=== PATIENT | male | born 1990 | race Caucasian/White ===

== ENCOUNTER 2019-06-16 10:02 | Emergency (ER) | payer BC, OTHER ==
[2019-06-16 10:11] VITALS: RESP 18; TEMP 98
[2019-06-16 11:22] VITALS: BP 132/82; PULSE 70
== END 2019-06-16 11:19 | disposition home or self-care (01) ==
LOC: EC 10:02
DX: Z02.9 Encounter for administrative examinations, unspecified (principal)

== ENCOUNTER 2020-06-06 20:08 | Emergency (ER) | payer BC ==
[2020-06-06 20:32] VITALS: BP 108/69; PULSE 98; RESP 18; TEMP 98.1
--- NOTE | 2020-06-06 20:55 | ED ---
General Adult HPI - General Chief complaint: Recheck/Abnormal Lab/Rx Stated complaint: chills and sore throat Time Seen by Provider: 06/06/20 20:32 Source: patient Mode of arrival: ambulatory Limitations: no limitations - History of Present Illness Initial comments: 30-year-old male presents to the emergency department this evening requesting a COVID-19 test. Patient states he has been feeling poorly for the past 5-7 days. Symptoms include congested cough, chills, nasal drainage, mild headache, and metallic taste in his mouth. Patient has not taken any medications to treat his symptoms. When asked about possible exposure to Covid 19 he states he was at [facility] a week ago for the of his child. Additionally, patient states his employer requires testing for those who are symptomatic and will also need a note excusing him from work. Patient denies any recent rash, fever, shortness of breath, chest pain, abdominal pain, nausea, vomiting, diarrhea, constipation, back pain, numbness, tingling, dizziness, weakness, hematuria, dysuria, urinary urgency, urinary frequency, visual changes, or any other complaints. - Related Data Home Medications Medication Instructions Recorded Confirmed Ibuprofen [Advil] 200 mg PO DIRECTED 02/23/15 02/23/15 guaiFENesin [Mucinex] 1 tab PO DIRECTED 02/23/15 02/23/15 Previous Rx's Medication Instructions Recorded Benzonatate [Tessalon Perles] 100 mg PO TID PRN #30 capsule 02/23/15 Allergies Allergy/AdvReac Type Severity Reaction Status Date / Time tetracycline AdvReac Anaphylaxis Verified 06/06/20 20:32 Review of Systems ROS Statement: Those systems with pertinent positive or pertinent negative responses have been documented in the HPI. ROS Other: All systems not noted in ROS Statement are negative. Past Medical History Past Medical History: No Reported History History of Any Multi-Drug Resistant Organisms: None Reported Past Surgical History: No Surgical Hx Reported Past Psychological History: No Psychological Hx Reported Smoking Status: Vaper Past Alcohol Use History: None Reported Past Drug Use History: None Reported General Exam Limitations: no limitations (Well-developed, well-nourished male in no acute distress. Initial temperature 98.1F, pulse 90, respirations 18, blood pressure 108/69, pulse ox 95% on room air.) General appearance: alert, in no apparent distress Respiratory exam: Present: normal lung sounds bilaterally. Absent: respiratory distress, wheezes, rales, rhonchi, stridor Cardiovascular Exam: Present: regular rate, normal rhythm, normal heart sounds. Absent: systolic murmur, diastolic murmur, rubs, gallop, clicks GI/Abdominal exam: Present: soft, normal bowel sounds. Absent: distended, tenderness, guarding, rebound, rigid Neurological exam: Present: alert, oriented X3, CN II-XII intact Psychiatric exam: Present: normal affect, normal mood Skin exam: Present: warm, dry, intact, normal color. Absent: rash Course Vital Signs 06/06/20 20:29 Temperature 98.1 F Pulse Rate 98 Respiratory 18 Rate Blood Pressure 108/69 O2 Sat by Pulse 95 Oximetry Medical Decision Making - Medical Decision Making 30-year-old male patient presents to the emergency department today requesting COVID-19 testing and work note. Patient has been sick with upper respiratory symptoms for the last 5-7 days. Reports possible exposure during a family member's hospital stay at [facility]. She denies any fever or chills. Denies shortness of breath. Lungs are clear to auscultation with good air movement. Vital signs are within normal ranges. We did perform the swab and we'll discharge home to follow-up with his primary care physician for recheck in 1-2 days. He is instructed to quarantine until he has his negative result. Return parameters were discussed in detail. He verbalizes understanding and agrees with this plan. Disposition Clinical Impression: Upper respiratory infection, Upper respiratory infection, viral Disposition: HOME SELF-CARE Condition: Good Instructions (If sedation given, give patient instructions): Upper Respiratory Infection (ED) Additional Instructions: Rest, increase fluids, follow-up with your primary care provider in the next 1-2 days for recheck. Treat symptoms, including fever and body aches, with Tylenol or Motrin. Return to the emergency department with any new, worsening, or concerning symptoms. Self quarantine until results of COVID 19 test are available. Is patient prescribed a controlled substance at d/c from ED?: No Referrals: None,Stated [Primary Care Provider] - 1-2 days Time of Disposition: 21:04
== END 2020-06-06 21:33 | disposition home or self-care (01) ==
LOC: EC 20:08
DX: J06.9 Acute upper respiratory infection, unspecified (principal); F17.290 Nicotine dependence, other tobacco product, uncomplicated; Z88.1 Allergy status to other antibiotic agents; Z20.828 Contact with and (suspected) exposure to other viral communicable diseases
CPT/HCPCS: 99283; U0003

== ENCOUNTER 2022-04-14 22:37 | Emergency (ER) | payer BC ==
[~2022-04-14 22:37] MED LIST: THIAMINE 100 MG/ML 2 ML VIAL IM ONE
[2022-04-14] MEDS ORDERED: LORazepam 2 MG/ML INJ IV PRN ×3 (22:40)
[2022-04-14] MEDS ORDERED: ONDANSETRON 4 MG/2 ML VIAL IVP STA (22:41)
[2022-04-14] MEDS ORDERED: PROCHLORPERAZINE INJ 10 MG/2 ML VIAL IVP STA (22:52)
[2022-04-14] MEDS: diphenhydrAMINE 50 MG/ML 1 ML VIAL IVP STA ×2 (22:56→23:05)
[2022-04-14] MEDS ORDERED: THIAMINE 100 MG/ML 2 ML VIAL IM ONE (23:00)
[2022-04-14] MEDS ORDERED: SODIUM CHLORIDE 0.9% 1,000 ML with THIAMINE 100 MG, FOLIC ACID 1 MG IV ONE ×3 (23:00)
--- NOTE | 2022-04-14 23:28 | ED ---
Alcohol HPI - General Source: police, RN notes reviewed - History of Present Illness MD Complaint: alcohol intoxication Last Drink: just [employer] <Ny Keys - Last Filed: 04/15/22 04:24> <Faraz Jean - Last Filed: 04/15/22 04:47> - General Stated Complaint: ETOH Time Seen by Provider: 04/14/22 22:40 - History of Present Illness Initial Comments: This is a 31-year-old male who presents to the emergency department for alcohol intoxication. Patient was brought in via EMS with police. Patient's girlfriend called the police, as he had consumed both wine and fireball and became very intoxicated. It is not clear how much he had, however they state that he never drinks this much. Patient also fell and hit his head on the coffee table. It is unclear if he lost consciousness. Patient actively vomiting and thrashing around. Unable to obtain any history from him at this time. He continues to repeat "I am a fighter". (Ny Keys) - Related Data Home Medications Medication Instructions Recorded Confirmed No Known Home Medications 04/14/22 04/14/22 Allergies Allergy/AdvReac Type Severity Reaction Status Date / Time tetracycline Allergy Anaphylaxis Verified 04/14/22 23:16 Review of Systems ROS Other: All systems not noted in ROS Statement are negative. <Ny Keys - Last Filed: 04/15/22 04:24> ROS Other: All systems not noted in ROS Statement are negative. <Faraz Jean - Last Filed: 04/15/22 04:47> ROS Statement: Those systems with pertinent positive or pertinent negative responses have been documented in the HPI. Past Medical History Past Medical History: No Reported History History of Any Multi-Drug Resistant Organisms: None Reported Past Surgical History: No Surgical Hx Reported Past Psychological History: No Psychological Hx Reported Smoking Status: Vaper Past Alcohol Use History: None Reported Past Drug Use History: None Reported <Ny Keys - Last Filed: 04/15/22 04:24> General Exam General appearance: appears intoxicated Eye exam: Present: PERRL, EOMI, other (Ecchymosis over the right eyelid and in the periorbital region.) Pupils: Present: normal accommodation Respiratory exam: Present: normal lung sounds bilaterally. Absent: respiratory distress, wheezes, rales, rhonchi, stridor Cardiovascular Exam: Present: regular rate, normal rhythm, normal heart sounds. Absent: systolic murmur, diastolic murmur, rubs, gallop, clicks Skin exam: Present: warm, dry, intact, normal color. Absent: rash <Ny Keys - Last Filed: 04/15/22 04:24> General appearance: alert, in no apparent distress Head exam: Present: atraumatic, normocephalic, normal inspection Eye exam: Present: normal appearance, PERRL, EOMI. Absent: scleral icterus, conjunctival injection, periorbital swelling ENT exam: Present: normal exam, mucous membranes moist Neck exam: Present: normal inspection. Absent: tenderness, meningismus, lymphadenopathy Respiratory exam: Present: normal lung sounds bilaterally. Absent: respiratory distress, wheezes, rales, rhonchi, stridor Cardiovascular Exam: Present: regular rate, normal rhythm, normal heart sounds. Absent: systolic murmur, diastolic murmur, rubs, gallop, clicks GI/Abdominal exam: Present: soft, normal bowel sounds. Absent: distended, tenderness, guarding, rebound, rigid Extremities exam: Present: normal inspection, full ROM, normal capillary refill. Absent: tenderness, pedal edema, joint swelling, calf tenderness Back exam: Present: normal inspection Neurological exam: Present: alert, oriented X3, CN II-XII intact Psychiatric exam: Present: normal affect, normal mood Skin exam: Present: warm, dry, intact, normal color. Absent: rash <Faraz Jean - Last Filed: 04/15/22 04:47> Course <Faraz Jean - Last Filed: 04/15/22 04:47> Vital Signs 04/14/22 04/14/22 04/15/22 22:40 23:47 03:41 Temperature 98 F Pulse Rate 50 L 74 Respiratory 11 L 10 L 15 Rate Blood Pressure 99/80 O2 Sat by Pulse 95 99 Oximetry - Reevaluation(s) Reevaluation #1: 04/15/22 04:46 Medical record is reviewed (Faraz Jean) Reevaluation #2: 04/15/22 06:46 Patient is significantly improved from prior awake alert able to ambulate (Faraz Jean) Medical Decision Making - Lab Data Result diagrams: 04/14/22 23:00 04/14/22 23:00 - Radiology Data Radiology results: report reviewed, image reviewed <Ny Keys - Last Filed: 04/15/22 04:24> - Lab Data Result diagrams: 04/14/22 23:00 04/14/22 23:00 <Faraz Jean - Last Filed: 04/15/22 04:47> - Medical Decision Making This is a 31-year-old male who presents to the emergency department for alcohol intoxication. Lab work reveals an alcohol level of 254 and elevated lipase. Lab work was otherwise nonactionable. Computed tomography scan of the brain r evealed no acute abnormalities. There was concern about the patient's ability to protect his airway with his repeated episodes of emesis. Chest x-ray obtained, revealing no acute cardiopulmonary process. However, if the patient were to have an aspiration pneumonia, this would not be immediately evident on x-ray. Patient reevaluated at 0400 and found to be doing much better. He was coherent during conversation and states that he is feeling much better. Patient will be discharged home with someone else who is sober and can drive him home. Return precautions reviewed in depth, the patient is instructed to return to the emergency department with any new, worsening, or concerning symptoms. Patient verbalized understanding. This case was discussed in detail with the attending ED physician. Presentation, findings, and treatment plan discussed in detail as well. (Ny Keys) 31 male DF for evaluation. Patient Dese for evaluation severe alcohol intoxication with vomiting. Patient is given adequate hydration and symptom treatment here in the ER he feels much better, patient will be discharged when he has a sober ride home (Faraz Jean) - Lab Data Lab Results 04/14/22 04/14/22 Range/Units 23:00 23:00 WBC 9.7 (3.8-10.6) k/uL RBC 5.06 (4.30-5.90) m/uL Hgb 15.5 (13.0-17.5) gm/dL Hct 46.2 (39.0-53.0) % MCV 91.2 (80.0-100.0) fL MCH 30.7 (25.0-35.0) pg MCHC 33.7 (31.0-37.0) g/dL RDW 12.9 (11.5-15.5) % Plt Count 302 (150-450) k/uL MPV 7.7 Neutrophils % 35 % Lymphocytes % 49 % Monocytes % 9 % Eosinophils % 3 % Basophils % 1 % Neutrophils # 3.4 (1.3-7.7) k/uL Lymphocytes # 4.8 (1.0-4.8) k/uL Monocytes # 0.8 (0-1.0) k/uL Eosinophils # 0.3 (0-0.7) k/uL Basophils # 0.1 (0-0.2) k/uL Sodium 143 (137-145) mmol/L Potassium 3.5 (3.5-5.1) mmol/L Chloride 109 H (98-107) mmol/L Carbon Dioxide 20 L (22-30) mmol/L Anion Gap 14 mmol/L BUN 11 (9-20) mg/dL Creatinine 1.08 (0.66-1.25) mg/dL Est GFR (CKD-EPI)AfAm >90 (>60 ml/min/1.73 sqM) Est GFR (CKD-EPI)NonAf >90 (>60 ml/min/1.73 sqM) Glucose 75 (74-99) mg/dL Calcium 8.8 (8.4-10.2) mg/dL Phosphorus 1.7 L (2.5-4.5) mg/dL Magnesium 2.4 H (1.6-2.3) mg/dL Total Bilirubin 0.3 (0.2-1.3) mg/dL AST 44 (17-59) U/L ALT 30 (4-49) U/L Alkaline Phosphatase 42 (38-126) U/L Total Protein 6.0 L (6.3-8.2) g/dL Albumin 3.8 (3.5-5.0) g/dL Amylase 71 (30-110) U/L Lipase 509 H (23-300) U/L Serum Alcohol 254 H* mg/dL Disposition Is patient prescribed a controlled substance at d/c from ED?: No <Ny Keys - Last Filed: 04/15/22 04:24> Is patient prescribed a controlled substance at d/c from ED?: No Time of Disposition: 07:00 <Faraz Jean - Last Filed: 04/15/22 04:47> Clinical Impression: Alcoholic intoxication Disposition: HOME SELF-CARE Condition: Good Instructions (If sedation given, give patient instructions): Alcohol Intoxication (ED) Referrals: None,Stated [Primary Care Provider] - 1-2 days
[2022-04-14 23:41] LABS: Basophils # (A) 0.1 k/uL (0-0.2); Basophils % (A) 1 %; Eosinophils # (A) 0.3 k/uL (0-0.7); Eosinophils % (A) 3 %; HCT 46.2 % (39.0-53.0); HGB 15.5 gm/dL (13.0-17.5); Lymphocytes # (A) 4.8 k/uL (1.0-4.8); Lymphocytes % (A) 49 %; MCH 30.7 pg (25.0-35.0); MCHC 33.7 g/dL (31.0-37.0); MCV 91.2 fL (80.0-100.0); Mean Platelet Volume 7.7; Monocytes # (A) 0.8 k/uL (0-1.0); Monocytes % (A) 9 %; Neutrophils # (A) 3.4 k/uL (1.3-7.7); Neutrophils % (A) 35 %; Platelet Count 302 k/uL (150-450); RBC 5.06 m/uL (4.30-5.90); RDW 12.9 % (11.5-15.5); WBC 9.7 k/uL (3.8-10.6)
[2022-04-14] MEDS ORDERED: NALOXONE 0.4 MG/ML 10 ML VIAL IVP STA (23:47)
--- NOTE | 2022-04-14 23:47 | XR ---
EXAMINATION TYPE: XR chest 1V DATE OF EXAM: 04/14/2022 COMPARISON: 02/23/2015 HISTORY: Trauma TECHNIQUE: Single view FINDINGS: There is no heart failure nor confluent pneumonic infiltrate. Costophrenic angles are clear . There are chest leads. IMPRESSION: No active cardiopulmonary disease. No change.
[2022-04-15 00:07] LABS: ALT 30 U/L (4-49); AST 44 U/L (17-59); African American GFR (CKD) >90 (>60 ml/min/1.73 sqM); Albumin 3.8 g/dL (3.5-5.0); Alkaline Phosphatase 42 U/L (38-126); Amylase 71 U/L (30-110); Anion Gap 14 mmol/L; Blood Urea Nitrogen 11 mg/dL (9-20); Calcium 8.8 mg/dL (8.4-10.2); Carbon Dioxide 20 mmol/L (22-30); Chloride 109 mmol/L (98-107); Glucose 75 mg/dL (74-99); Lipase 509 U/L (23-300); Magnesium 2.4 mg/dL (1.6-2.3); Non-African American GFR(CKD) >90 (>60 ml/min/1.73 sqM); Phosphorus 1.7 mg/dL (2.5-4.5); Potassium 3.5 mmol/L (3.5-5.1); Sodium 143 mmol/L (137-145); Total Bilirubin 0.3 mg/dL (0.2-1.3)
[2022-04-15 00:32] LABS: Alcohol 254 mg/dL
--- NOTE | 2022-04-15 01:06 | CT ---
EXAMINATION TYPE: CT brain wo con DATE OF EXAM: 04/15/2022 COMPARISON: None HISTORY: Head trauma. CT DLP: mGycm Automated exposure control for dose reduction was used. Ventricles have normal size. There is no mass effect or midline shift. No sign of intracranial hemorr olinda. The calvarium is intact. No evidence of cerebral edema. IMPRESSION: Negative unenhanced head CT scan.
[2022-04-15] MEDS ORDERED: THIAMINE 100 MG TAB PO SCH (07:30)
[2022-04-15 07:32] VITALS: RESP 18; TEMP 98.4
[2022-04-15 07:44] VITALS: BP 120/74; PULSE 69
== END 2022-04-15 07:44 | disposition home or self-care (01) ==
LOC: EC 22:37
DX: F10.129 Alcohol abuse with intoxication, unspecified (principal); F17.209 Nicotine dependence, unspecified, with unspecified nicotine-induced disorders; Z88.1 Allergy status to other antibiotic agents
CPT/HCPCS: 36415; 80053; 82150; 83690; 83735; 84100; 85025; 80320; 71045; 70450; 99285; 96365; 96366; 96375; 96372; J0780; J2310; J3411; J2405